=== PATIENT | male | born 1960 | race Caucasian/White ===

== ENCOUNTER 2019-12-22 09:23 | Inpatient (IN) | payer OTHER ==
--- OUTSIDE RECORDS SUMMARY | 2019-12-22 09:26 | XMS ---
:1960 Author Organization [facility] Support Name Relationship Address Phone Slick MADRIGAL SELF / SAME PATIENT [address] [place] [address] [place] [phone] Re-disclosure Warning The records that you are about to access may contain information from federally- assisted alcohol or drug abuse programs. If such information is present, then the following federally mandated warning applies: This information has been disclosed to you from records protected by federal confidentiality rules (42 CFR part 2). The federal rules prohibit you from making any further disclosure of this information unless further disclosure is expressly permitted by the written consent of the person to whom it pertains or as otherwise permitted by 42 CFR part 2. A general authorization for the release of medical or other information is NOT sufficient for this purpose. The Federal rules restrict any use of the information to criminally investigate or prosecute any alcohol or drug abuse patient.The records that you are about to access may contain highly sensitive health information, the redisclosure of which is protected by Article 27-F of the [facility] Public Health law. If you continue you may haveaccess to information: Regarding HIV / AIDS; Provided by facilities licensed or operated by the [facility] Office of Mental Health; or Provided by the [facility] Office for People With Developmental Disabilities. If such information is present, then the following [facility] mandated warning applies: This information has been disclosed to you from confidential records which are protected by state law. State law prohibits you from making any further disclosure of this information without the specific written consent of the person to whom it pertains, or as otherwise permitted by law. Any unauthorized further disclosure in violation of state law may result in a fine or halfway sentence or both. A general authorization for the release of medical or other information is NOT sufficient authorization for further disclosure. Insurance Providers Payer name Policy type Policy ID Covered Covered libertarian's Policy P mariel / Coverage libertarian ID relationship to [facility] ormation type medina [facility] [id number] FIRST
--- NOTE | 2019-12-22 10:49 | BHS.RME ---
Substance Use & Tx History - Substance Use History Alcohol Substance amount: 4 pints of vodka/2 of 12 ozs of beer Frequency of use: Daily Substance route: Oral Date of Last Use: 12/21/19 - Last Treatment Date of last treatment: [facility] 2 months ago Where was last treatment: Detox Physical/Psych/Mental Status - Behavior Eye Contact: Normal - Cooperativeness Cooperativeness: Cooperative - Thinking Thought Processes: Logical - Physical Health Problems Is patient presently having any pain?: No Does patient presently have any injuries (include location): Yes (laceratio of left eyebrow with stitches injury 3 days ago) CIWA Nausea/Vomitin Muscle Tremors: 3 Anxiety: 3 Agitation: 3 Paroxysmal Sweats: 1-Minimal Palms Moist Orientation: 0-Oriented Tacttile Disturbances: 1-Very Mild Itch/Numbness Auditory Disturbances: 0-None Visual Disturbances: 0-None Headache: 1-Very Mild CIWA-Ar Total Score: 14
--- NOTE | 2019-12-22 11:01 | HP ---
CIWA Score Nausea/Vomitin Muscle Tremors: 3 Anxiety: 3 Agitation: 3 Paroxysmal Sweats: 1-Minimal Palms Moist Orientation: 0-Oriented Tacttile Disturbances: 1-Very Mild Itch/Numbness Auditory Disturbances: 0-None Visual Disturbances: 0-None Headache: 1-Very Mild CIWA-Ar Total Score: 14 - Admission Criteria OASAS Guidelines: Admission for Medically Managed Detox: Requires at least one of the followin. CIWA greater than 12 2. Seizures within the past 24 hours 3. Delirium tremens within the past 24 hours 4. Hallucinations within the past 24 hours 5. Acute intervention needed for co occurring medical disorder 6. Acute intervention needed for co occurring psychiatric disorder 7. Severe withdrawal that cannot be handled at a lower level of care (continued vomiting, continued diarrhea, abnormal vital signs) requiring intravenous medication and/or fluids 8. Admitting History and Physical - Admission Chief Complaint: i need help to stop drinking alcohol History of Present Illness: this 59 years old male with alcohol dependence seeking help to stop, seen in [place] last night History Source: Patient Limitations to Obtaining History: No Limitations - Past Medical History Hepatobiliary: Yes: Other (fatty liver) Additional Past Medical History: fx of floor of orbit right at age of 40 years fx floor of right hand at age of 41 years - Smoking History Smoking history: Never smoked - Alcohol/Substance Use Hx Alcohol Use: Yes Date of Last Use: 12/21/19 - Social History Usual Living Arrangement: Yes: Other (living in [facility]) Do you think of yourself as: Straight/Heterosexual ADL: Support Services Occupation: unemployed History of Recent Travel: No Other Social History: living in [facility],ambulation with walker,frequent falls,no legal issue Admission [facility] Chief Complaint: i need help to stop drinking alcohol Allergies/Adverse Reactions: Allergies Allergy/AdvReac Type Severity Reaction Status Date / Time No Known Allergies Allergy Verified 12/22/19 11:07 History of Present Illness: this 59 years old male with alcohol dependence,seeking detox,history of chronic alcoholism stated age of [age] years old, drink 4 pints of vodka and 2 of 12 ozs of beer frequent falls denied seizure syncope ambulation with walker history of fatty liver fell 4 days ago had stitches left eyebrow ,living in snf,unemployed positive eye resident care aid, history of surgery of fx floor of orbit right at age of 40 years fx of right hand surgery at age of 41 on antibiotics for bronchitis supposed to take augmentin history of gastritis no significant period of sobriety chronic edema of legs for 15 days Exam Limitations: No Limitations - Ebola screening Have you traveled outside of the country in the last 21 days: No Have you had contact with anyone from an Ebola affected area: No Have you been sick,other than usual withdrawal symptoms: No Do you have a fever: No - Review of Systems Constitutional: Loss of Appetite, Night Sweats, Changes in sleep, Weakness EENT: reports: Nose Congestion, Other (left eye brow with stiches and scab) Respiratory: reports: No Symptoms reported (history of bronchitis), Other Cardiac: reports: No Symptoms Reported GI: reports: Diarrhea, Nausea, Poor Appetite : reports: No Symptoms Reported Musculoskeletal: reports: Back Pain, Joint Pain Integumentary: reports: Dryness (swelling bot h legs), Other Neuro: reports: Tremors Endocrine: reports: No Symptoms Reported Hematology: reports: No Symptoms Reported Psychiatric: reports: No Sypmtoms Reported, Judgement Intact, Mood/Affect Appropiate, Orientated x3 Patient History - Patient Medical History Hx Anemia: No Hx Asthma: No Hx Chronic Obstructive Pulmonary Disease (COPD): No Hx Cancer: No Hx Cardiac Disorders: No Hx Congestive Heart Failure: No Hx Hypertension: No Hx Hypercholesterolemia: No Hx Pacemaker: No HX Cerebrovascular Accident: No Hx Seizures: No Hx Dementia: No Hx Diabetes: No Hx Gastrointestinal Disorders: Yes (gastritis) Hx Liver Disease: Yes (fatty kiver) Hx Genitourinary Disorders: No Hx Sexually Transmitted Disorders: No Hx Renal Disease (ESRD): No Hx Thyroid Disease: No Hx Human Immunodeficiency Virus (HIV): No (06/2019 negative) Hx Hepatitis C: No Hx Depression: No Hx Suicide Attempt: No Hx Bipolar Disorder: No Hx Schizophrenia: No Other Medical History: no suiciidal,no homicidal - Patient Surgical History Past Surgical History: Yes Other Surgical History: fx floor of right orbit at age of 40,fx right hand at age of 41,frequent fa - PPD History Previous Implant?: Yes Documented Results: Negative w/o proof Implanted On Prior [facility] Admission?: No PPD to be Administered?: Yes - Smoking Cessation Smoking history: Never smoked - Substance & Tx. History Hx Alcohol Use: Yes Hx Substance Use: No Substance Use Type: Alcohol Hx Substance Use Treatment: Yes ([facility] in 10/2019) - Substances abused Alcohol Substance route: Oral Frequency: Daily Amount used: 4 pnits of vodka/2 of 12 ozs of beer Age of first use: 10 Date of last use: 12/21/19 Admission Physical Exam [facility] - Vital Signs Vital Signs: bp 103/61 p100 r 18 t 98 bryce o.oo pulse ox 99% - Physical General Appearance: Yes: Moderate Distress, Tremorous, Irritable, Sweating, Anxious HEENTM: Yes: Other (laceration of left eyebrow with stitches and scab formation) Respiratory: Yes: Lungs Clear, No Respiratory Distress Neck: Yes: Within Normal Limits, Supple Breast: Yes: Within Normal Limits Cardiology: Yes: Within Normal Limits, Regular Rhythm, Regular Rate, S1, S2 Abdominal: Yes: Normal Bowel Sounds, Non Tender, Soft Genitourinary: Yes: Within Normal Limits Back: Yes: Muscle Spasm Musculoskeletal: Yes: Back pain, Muscle Pain Extremities: Yes: Tremors, Pedal Edema Neurological: Yes: drum straightener II-XII NML intact, Fully Oriented, Alert, Motor Strength 5/5, Normal Mood/Affect Integumentary: Yes: Dry Lymphatic: Yes: Within Normal Limits - Diagnostic (1) Alcohol dependence, uncomplicated Current Visit: Yes Status: Acute (2) Edema of both legs Current Visit: Yes Status: Acute (3) Frequent falls Current Visit: Yes Status: Acute (4) Walker as ambulation aid Current Visit: Yes Status: Acute (5) Bronchitis Current Visit: Yes Status: Acute (6) Syncope Current Visit: Yes Status: Acute (7) Laceration of eyebrow Current Visit: Yes Status: Acute Qualifiers: Laterality: left Cleared for Admission [facility] - Detox or Rehab [facility] Level of Care: Medically Managed Detox Regimen/Protocol: Librium Inpatient Rehab Admission - Rehab Decision to Admit Inpatient rehab admission?: No
[2019-12-22] MEDS ORDERED: ONDANSETRON *ODT* 4 MG TABLET SL PRN (11:33)
[2019-12-22] MEDS ORDERED: MENTHOL/PHENOL 1 EACH UD MM PRN (11:33)
[2019-12-22] MEDS ORDERED: METHOCARBAMOL 500 MG TABLET PO PRN (11:33)
[2019-12-22] MEDS ORDERED: ACETAMINOPHEN 325 MG TABLET (FP) PO PRN ×2 (11:33)
[2019-12-22] MEDS ORDERED: MAGNESIUM HYDROX 2400MG/30ML ORAL SUSPENSION 30 ML CUP PO PRN (11:33)
[2019-12-22] MEDS ORDERED: chlordiazePOXIDE HCL 25 MG CAPSULE PO PRN (11:33)
[2019-12-22] MEDS ORDERED: MAGNESIUM CITRATE 300 ML BOTTLE PO PRN (11:33)
[2019-12-22] MEDS ORDERED: IBUPROFEN 400 MG TABLET (FP) PO PRN (11:33)
[2019-12-22] MEDS ORDERED: BISMUTH SUBSALICYLATE 524 MG/30 ML UD PO PRN (11:33)
--- OUTSIDE RECORDS SUMMARY | 2019-12-22 11:52 | XMS ---
:1960 Author Organization [facility] Support Name Relationship Address Phone ANETTE MADRIGAL SELF / SAME PATIENT [address] [place] [address] [phone] [place] [address] Re-disclosure Warning The records that you are [...] is protected by Article 27-F of the [facility] Public Health law. If you continue you may haveaccess to information: Regarding HIV / AIDS; Provided by facilities licensed or operated by the [facility] Office of Mental Health; or Provided by the [facility] Office for People With Developmental Disabilities. If such information is present, then the following [facility] mandated warning applies: This information has [...] law may result in a fine or mcc sentence or both. A general authorization for the release of medical or other information is NOT sufficient authorization for further disclosure. Insurance Providers Payer name Policy type Policy ID Covered Covered alliance party's Policy P mariel / Coverage alliance party ID relationship to [facility] ormation type medina [facility] [id number] SP [id number] FIRST
[2019-12-22 11:57] VITALS: BMI 21.4
[2019-12-22] MEDS ORDERED: ALBUTEROL SO4 HFA INHALER IH PRN (12:33)
[2019-12-22] MEDS: BACITRACIN 15 GM TUBE TOPICAL OINTMENT TP SCH ×2 (13:37→22:34)
[2019-12-22] MEDS: hydrOXYzine PAMOATE 25 MG CAPSULE (FP) PO SCH ×3 (13:44→22:30)
[2019-12-22] MEDS: chlordiazePOXIDE HCL 25 MG CAPSULE PO SCH ×2 (17:50→22:30)
--- NOTE | 2019-12-22 21:48 | EKG ---
Test Reason : Blood Pressure : / mmHG Vent. Rate : 096 BPM Atrial Rate : 096 BPM P-R Int : 134 ms QRS Dur : 088 ms QT Int : 356 ms P-R-T Axes : 013 047 053 degrees QTc Int : 449 ms NORMAL SINUS RHYTHM NORMAL ECG NO PREVIOUS ECGS AVAILABLE Confirmed by Edwina Maria ([id number]) on 12/22/2019 9:48:43 PM Referred By: Confirmed By:Edwina Maria
[2019-12-22] MEDS: AMOX TR/POT CLAV 500MG/125MG TABLETS (FP) PO SCH (22:30)
[2019-12-22] MEDS: MELATONIN 5 MG TABLETS PO SCH (22:30)
[2019-12-22] MEDS: THIAMINE HCL 100 MG TABLET (FP) PO SCH (22:30)
[2019-12-23] MEDS: chlordiazePOXIDE HCL 25 MG CAPSULE PO SCH ×4 (05:25→22:33)
[2019-12-23] MEDS: hydrOXYzine PAMOATE 25 MG CAPSULE (FP) PO SCH ×5 (05:55→22:33)
[2019-12-23] MEDS: AMOX TR/POT CLAV 500MG/125MG TABLETS (FP) PO SCH ×2 (07:49→18:21)
--- NOTE | 2019-12-23 09:41 | PN ---
[facility] CIWA - CIWA Score Nausea/Vomitin-No Nausea/No Vomiting Muscle Tremors: 3 Anxiety: 2 Agitation: 0-Normal Activity Paroxysmal Sweats: 1-Minimal Palms Moist ("little bit when I woke up") Orientation: 0-Oriented Tacttile Disturbances: 1-Very Mild Itch/Numbness (lower legs) Auditory Disturbances: 0-None Visual Disturbances: 2-Mild Sensitivity Headache: 2-Mild CIWA-Ar Total Score: 11 S Progress Note (SOAP) Subjective: 59 years old male was admitted on 12/22/19 for alcohol withdrawal sx management treating with librium detox regiment ambulating with walker slow steady tolerating augmentin well both lower legs +1 edematous encourage elevation on pillows continue ensure supplement Objective: 12/23/19 09:45 Vital Signs - 24 hr 12/22/19 12/22/19 12/22/19 11:55 13:25 16:45 Temperature 98.0 F 98.6 F 98.2 F Pulse Rate 100 H 106 H 107 H Respiratory 18 18 19 Rate Blood Pressure 103/61 157/83 152/82 O2 Sat by Pulse 99 Oximetry (%) 12/22/19 12/23/19 21:26 06:52 Temperature 98.2 F 99.6 F Pulse Rate 93 H 86 Respiratory 18 18 Rate Blood Pressure 132/72 130/80 O2 Sat by Pulse 98 100 Oximetry (%) 12/23/19 09:45 lab pending Assessment: 12/23/19 09:45 alcohol withdrawal Plan: librium regiment
[2019-12-23] MEDS: PANTOPRAZOLE 40 MG TABLET PO SCH (10:16)
[2019-12-23] MEDS: PRENATAL VITAMINS W/ FOLIC ACID TABLET (FP) PO SCH (10:16)
[2019-12-23] MEDS: BACITRACIN 15 GM TUBE TOPICAL OINTMENT TP SCH (10:30)
[2019-12-23 10:31] LABS: HEMATOCRIT 32.1 % (35.4-49); HEMOGLOBIN 10.8 GM/dL (11.7-16.9); MCHC 33.7 g/dl (32.0-35.9); MEAN CELL VOLUME 91.9 fl (80-96); MEAN PLT VOLUME 7.3 fl (7.5-11.1); PLATELET COUNT 98 K/MM3 (134-434); RDW 14.9 % (11.9-15.9); WHITE BLOOD COUNT 3.9 K/mm3 (4.0-10.0)
[2019-12-23] MEDS: BACITRACIN 0.9 GM PACKET TP SCH ×2 (10:31→22:33)
[2019-12-23 11:04] LABS: ALBUMIN 3.2 g/dl (3.4-5.0); BILIRUBIN,TOTAL 0.9 mg/dL (0.2-1); CALCIUM 8.1 mg/dL (8.5-10.1); CREATININE 0.8 mg/dL (0.55-1.3); TOT PROT 5.8 g/dl (6.4-8.2)
[2019-12-23 11:11] LABS: POTASSIUM 2.9 mmol/L (3.5-5.1)
[2019-12-23] MEDS: POTASSIUM CHLORIDE ORAL LIQUID 20 MEQ/15 ML PO SCH ×2 (13:04→15:16)
[2019-12-23 14:57] LABS: URINE APPEARANCE CLOUDY; URINE BILIRUBIN NEGATIVE (NEGATIVE); URINE COLOR YELLOW; URINE GLUCOSE (UA) NEGATIVE (NEGATIVE); URINE KETONE NEGATIVE (NEGATIVE); URINE LEUK ESTERASE NEGATIVE (NEGATIVE); URINE NITRITE NEGATIVE (NEGATIVE); URINE PROTEIN TRACE (NEGATIVE); URINE UROBILINOGEN 0.2 mg/dL (0.2-1.0)
[2019-12-23] MEDS: MELATONIN 5 MG TABLETS PO SCH (22:33)
[2019-12-23] MEDS: THIAMINE HCL 100 MG TABLET (FP) PO SCH (22:33)
[2019-12-24] MEDS: hydrOXYzine PAMOATE 25 MG CAPSULE (FP) PO SCH ×5 (05:16→23:01)
[2019-12-24] MEDS: chlordiazePOXIDE HCL 25 MG CAPSULE PO SCH ×4 (05:16→23:01)
[2019-12-24] MEDS: PRENATAL VITAMINS W/ FOLIC ACID TABLET (FP) PO SCH (10:16)
[2019-12-24] MEDS: BACITRACIN 0.9 GM PACKET TP SCH ×2 (10:16→23:02)
[2019-12-24] MEDS: PANTOPRAZOLE 40 MG TABLET PO SCH (10:17)
[2019-12-24] MEDS: MAG HYDROX/AL HYDROX/SIMETH 30 ML UNIT-DOSE CUP PO PRN (10:18)
--- NOTE | 2019-12-24 11:16 | PN ---
[facility] CIWA - CIWA Score Nausea/Vomitin-Mild Nausea/No Vomiting Muscle Tremors: 1-None Visible, but [place] Anxiety: 1-Mildly Anxious Agitation: 0-Normal Activity Paroxysmal Sweats: No Perspiration Orientation: 0-Oriented Tacttile Disturbances: 1-Very Mild Itch/Numbness Auditory Disturbances: 0-None Visual Disturbances: 1-Very Mild Sensitivity Headache: 1-Very Mild CIWA-Ar Total Score: 6 BHS Progress Note (SOAP) Subjective: 59 years old male was admitted on 12/22/19 for alcohol withdrawal sx management treating with librum detox regiment ambulating with walker slow steady ate breakfast tolerated food and ensure well low K+ tolerated K+ supplement well Objective: 12/24/19 11:27 Vital Signs - 24 hr 12/23/19 12/23/19 12/23/19 13:41 16:51 20:30 Temperature 97.5 F L 97.3 F L 97.5 F L Pulse Rate 85 97 H 84 Respiratory 16 18 18 Rate Blood Pressure 150/79 139/90 132/79 O2 Sat by Pulse 98 100 Oximetry (%) 12/24/19 12/24/19 06:27 09:16 Temperature 98.6 F 97.1 F L Pulse Rate 82 92 H Respiratory 18 18 Rate Blood Pressure 135/84 131/75 O2 Sat by Pulse 99 Oximetry (%) Laboratory Tests 12/22/19 12/23/19 12/23/19 12:20 07:25 07:25 WBC 3.9 L RBC 3.50 L Hgb 10.8 L Hct 32.1 L MCV 91.9 MCH 31.0 MCHC 33.7 RDW 14.9 Plt Count 98 L MPV 7.3 L Sodium Potassium Chloride Carbon Dioxide Anion Gap BUN Creatinine Est GFR (CKD-EPI)AfAm Est GFR (CKD-EPI)NonAf Random Glucose Calcium Total Bilirubin AST ALT Alkaline Phosphatase Total Protein Albumin Urine Color Urine Appearance Urine pH Ur Specific [employer] Urine Protein Urine Glucose (UA) Urine Ketones Urine Blood Urine Nitrite Urine Bilirubin Urine Urobilinogen Ur Leukocyte Esterase Syphilis Serology Non-reactive COVID-19 (SHERITA) Not detected 12/23/19 12/23/19 07:25 11:00 WBC RBC Hgb Hct MCV MCH MCHC RDW Plt Count MPV Sodium 143 Potassium 2.9 L* Chloride 104 Carbon Dioxide 34 H Anion Gap 5 L BUN 13.0 Creatinine 0.8 Est GFR (CKD-EPI)AfAm 113.33 Est GFR (CKD-EPI)NonAf 97.78 Random Glucose 95 Calcium 8.1 L Total Bilirubin 0.9 AST 67 H ALT 39 Alkaline Phosphatase 77 Total Protein 5.8 L Albumin 3.2 L Urine Color Yellow Urine Appearance Cloudy Urine pH 7.0 Ur Specific [employer] 1.025 Urine Protein Trace Urine Glucose (UA) Negative Urine Ketones Negative Urine Blood Negative Urine Nitrite Negative Urine Bilirubin Negative Urine Urobilinogen 0.2 Ur Leukocyte Esterase Negative Syphilis Serology COVID-19 (SHERITA) 12/24/19 11:27 K+ repeat pending Assessment: 12/24/19 11:27 alcohol withdrawal hypokalemia Plan: librium regiment repeat K+ pending
[2019-12-24] MEDS: POTASSIUM CHLORIDE ORAL LIQUID 20 MEQ/15 ML PO SCH ×2 (15:43→18:54)
[2019-12-24] MEDS: AMOX TR/POT CLAV 500MG/125MG TABLETS (FP) PO SCH (18:55)
[2019-12-24] MEDS: THIAMINE HCL 100 MG TABLET (FP) PO SCH (23:01)
[2019-12-24] MEDS: MELATONIN 5 MG TABLETS PO SCH (23:02)
[2019-12-25] MEDS ORDERED: chlordiazePOXIDE HCL 10 MG CAPSULE PO PRN
[2019-12-25] MEDS: hydrOXYzine PAMOATE 25 MG CAPSULE (FP) PO SCH (05:27)
[2019-12-25] MEDS: chlordiazePOXIDE HCL 10 MG CAPSULE PO SCH ×4 (05:27→22:32)
[2019-12-25] MEDS: AMOX TR/POT CLAV 500MG/125MG TABLETS (FP) PO SCH ×3 (05:27→17:47)
--- NOTE | 2019-12-25 09:43 | PN ---
S CIWA - CIWA Score Nausea/Vomitin-No Nausea/No Vomiting Muscle Tremors: 1-None Visible, but [place] Anxiety: 1-Mildly Anxious Agitation: 0-Normal Activity Paroxysmal Sweats: No Perspiration Orientation: 0-Oriented Tacttile Disturbances: 0-None Auditory Disturbances: 0-None Visual Disturbances: 1-Very Mild Sensitivity Headache: 0-None Present CIWA-Ar Total Score: 3 BHS Progress Note (SOAP) Subjective: 59 years old male was admitted on 12/22/19 for alcohol withdrawal sx management treating with librium detox regiment ambulating with walker slow steady fell on 12/20/19 treated at [facility] 5 sutures at left lateral eye brow sutures intact denies pain no redness no swelling no tenderness multiple superficial skin abrasion on both lower legs encourage mr alcaraz clean with soap pad dry apply bacitracin ointment as directed Objective: 12/25/19 09:42 Vital Signs - 24 hr 12/24/19 12/24/19 12/24/19 15:07 16:43 20:37 Temperature 97.4 F L 98.2 F 98.6 F Pulse Rate 95 H 96 H 89 Respiratory 18 18 16 Rate Blood Pressure 142/86 138/90 135/84 O2 Sat by Pulse 96 99 Oximetry (%) 12/25/19 12/25/19 06:26 08:53 Temperature 97.6 F 97.7 F Pulse Rate 78 92 H Respiratory 18 18 Rate Blood Pressure 136/83 130/85 O2 Sat by Pulse 98 Oximetry (%) Laboratory Tests 12/22/19 12/23/19 12/23/19 12:20 07:25 07:25 WBC 3.9 L RBC 3.50 L Hgb 10.8 L Hct 32.1 L MCV 91.9 MCH 31.0 MCHC 33.7 RDW 14.9 Plt Count 98 L MPV 7.3 L Sodium Potassium Chloride Carbon Dioxide Anion Gap BUN Creatinine Est GFR (CKD-EPI)AfAm Est GFR (CKD-EPI)NonAf Random Glucose Calcium Total Bilirubin AST ALT Alkaline Phosphatase Total Protein Albumin Urine Color Urine Appearance Urine pH Ur Specific [place] Urine Protein Urine Glucose (UA) Urine Ketones Urine Blood Urine Nitrite Urine Bilirubin Urine Urobilinogen Ur Leukocyte Esterase Syphilis Serology Non-reactive COVID-19 (SHERITA) Not detected 12/23/19 12/23/19 12/24/19 07:25 11:00 07:30 WBC RBC Hgb Hct MCV MCH MCHC RDW Plt Count MPV Sodium 143 Potassium 2.9 L* 3.2 L Chloride 104 Carbon Dioxide 34 H Anion Gap 5 L BUN 13.0 Creatinine 0.8 Est GFR (CKD-EPI)AfAm 113.33 Est GFR (CKD-EPI)NonAf 97.78 Random Glucose 95 Calcium 8.1 L Total Bilirubin 0.9 AST 67 H ALT 39 Alkaline Phosphatase 77 Total Protein 5.8 L Albumin 3.2 L Urine Color Yellow Urine Appearance Cloudy Urine pH 7.0 Ur Specific [place] 1.025 Urine Protein Trace Urine Glucose (UA) Negative Urine Ketones Negative Urine Blood Negative Urine Nitrite Negative Urine Bilirubin Negative Urine Urobilinogen 0.2 Ur Leukocyte Esterase Negative Syphilis Serology COVID-19 (SHERITA) 12/25/19 09:43 discontinue vistaril 12/25/19 09:43 received K+ supplement 40meq x 2 dosages repeat K+ pending Assessment: 12/25/19 09:44 alcohol withdrawal Plan: librium regiment
[2019-12-25] MEDS: PANTOPRAZOLE 40 MG TABLET PO SCH (10:26)
[2019-12-25] MEDS: PRENATAL VITAMINS W/ FOLIC ACID TABLET (FP) PO SCH (10:26)
[2019-12-25] MEDS: BACITRACIN 0.9 GM PACKET TP SCH ×2 (10:37→22:32)
[2019-12-25] MEDS: MELATONIN 5 MG TABLETS PO SCH (22:32)
[2019-12-25] MEDS: THIAMINE HCL 100 MG TABLET (FP) PO SCH (22:32)
[2019-12-25] MEDS: MAG HYDROX/AL HYDROX/SIMETH 30 ML UNIT-DOSE CUP PO PRN (23:00)
[2019-12-26] MEDS: chlordiazePOXIDE HCL 10 MG CAPSULE PO SCH ×2 (05:23→17:55)
[2019-12-26] MEDS: AMOX TR/POT CLAV 500MG/125MG TABLETS (FP) PO SCH ×2 (08:07→17:55)
--- NOTE | 2019-12-26 08:41 | PN ---
S CIWA - CIWA Score Nausea/Vomitin-Mild Nausea/No Vomiting Muscle Tremors: 2 Anxiety: 2 Agitation: 0-Normal Activity Paroxysmal Sweats: No Perspiration Orientation: 0-Oriented Tacttile Disturbances: 0-None Auditory Disturbances: 0-None Visual Disturbances: 0-None Headache: 0-None Present CIWA-Ar Total Score: 5 BHS Progress Note (SOAP) Subjective: alert,irritable,anxious,interrupted sleep,aching pain Objective: 12/26/19 12:07 Vital Signs Temperature 96.9 F L 12/26/19 08:48 Pulse Rate 83 12/26/19 08:48 Respiratory Rate 16 12/26/19 08:48 Blood Pressure 106/66 12/26/19 08:48 O2 Sat by Pulse Oximetry (%) 96 12/26/19 06:11 12/26/19 12:07 Laboratory Results - last 24 hr 12/25/19 07:30 Potassium 3.6 Assessment: 12/26/19 12:08 withdrawal symptom Plan: continue detox librium regimen,declined rehab,follow up with medical provider at [facility] and out patient program at [facility] alcohol and substance abused as arrangement by counselor
[2019-12-26] MEDS: PANTOPRAZOLE 40 MG TABLET PO SCH (10:13)
[2019-12-26] MEDS: BACITRACIN 0.9 GM PACKET TP SCH ×2 (10:13→22:07)
[2019-12-26] MEDS: PRENATAL VITAMINS W/ FOLIC ACID TABLET (FP) PO SCH (10:13)
[2019-12-26] MEDS: THIAMINE HCL 100 MG TABLET (FP) PO SCH (22:07)
[2019-12-26] MEDS: MELATONIN 5 MG TABLETS PO SCH (22:07)
[2019-12-26] MEDS: MAG HYDROX/AL HYDROX/SIMETH 30 ML UNIT-DOSE CUP PO PRN (22:08)
[2019-12-27] MEDS ORDERED: chlordiazePOXIDE HCL 10 MG CAPSULE PO ONE (05:00)
[2019-12-27] MEDS: AMOX TR/POT CLAV 500MG/125MG TABLETS (FP) PO SCH (07:04)
[2019-12-27 09:23] VITALS: BP 113/78; PULSE 91; TEMP 97.7
--- NOTE | 2019-12-27 10:35 | DS ---
[facility] Detox Discharge Summary Admission Date: 12/22/19 Discharge Date: 12/27/19 - History Present History: Alcohol Dependence Additional Comments: alert,oriented x 3 ambulation on unit with walker lung clear on auscultation bilaterally no pain in the abdomen ,no tenderness stable for discharge,detox completed,no withdrawal symptom declined rehab will follow up with [facility] alcohol and substance abuse out patient total time of discharge 35 minutes Pertinent Past History: syncope alcohol related frequent falls ambulation with walker old laceration of left eyebrow with stitches bronchitis - Physical Exam Results Vital Signs: Vital Signs Temperature 97.7 F 12/27/19 08:50 Pulse Rate 91 H 12/27/19 08:50 Respiratory Rate 18 12/27/19 08:50 Blood Pressure 113/78 12/27/19 08:50 O2 Sat by Pulse Oximetry (%) 98 12/26/19 20:16 Pertinent Admission Physical Exam Findings: withdrawal signs and symptom Vital Signs Temperature 97.7 F 12/27/19 08:50 Pulse Rate 91 H 12/27/19 08:50 Respiratory Rate 18 12/27/19 08:50 Blood Pressure 113/78 12/27/19 08:50 O2 Sat by Pulse Oximetry (%) 98 12/26/19 20:16 Laboratory Last Values WBC 3.9 K/mm3 (4.0-10.0) L 12/23/19 07:25 RBC 3.50 M/mm3 (4.00-5.60) L 12/23/19 07:25 Hgb 10.8 GM/dL (11.7-16.9) L 12/23/19 07:25 Hct 32.1 % (35.4-49) L 12/23/19 07:25 MCV 91.9 fl (80-96) 12/23/19 07:25 MCH 31.0 pg (25.7-33.7) 12/23/19 07:25 MCHC 33.7 g/dl (32.0-35.9) 12/23/19 07:25 RDW 14.9 % (11.9-15.9) 12/23/19 07:25 Plt Count 98 K/MM3 (134-434) L 12/23/19 07:25 MPV 7.3 fl (7.5-11.1) L 12/23/19 07:25 Sodium 143 mmol/L (136-145) 12/23/19 07:25 Potassium 3.6 mmol/L (3.5-5.1) 12/25/19 07:30 Chloride 104 mmol/L (98-107) 12/23/19 07:25 Carbon Dioxide 34 mmol/L (21-32) H 12/23/19 07:25 Anion Gap 5 MMOL/L (8-16) L 12/23/19 07:25 BUN 13.0 mg/dL (7-18) 12/23/19 07:25 Creatinine 0.8 mg/dL (0.55-1.3) 12/23/19 07:25 Est GFR (CKD-EPI)AfAm 113.33 12/23/19 07:25 Est GFR (CKD-EPI)NonAf 97.78 12/23/19 07:25 Random Glucose 95 mg/dL (74-106) 12/23/19 07:25 Calcium 8.1 mg/dL (8.5-10.1) L 12/23/19 07:25 Total Bilirubin 0.9 mg/dL (0.2-1) 12/23/19 07:25 AST 67 U/L (15-37) H 12/23/19 07:25 ALT 39 U/L (13-61) 12/23/19 07:25 Alkaline Phosphatase 77 U/L (45-117) 12/23/19 07:25 Total Protein 5.8 g/dl (6.4-8.2) L 12/23/19 07:25 Albumin 3.2 g/dl (3.4-5.0) L 12/23/19 07:25 Urine Color Yellow 12/23/19 11:00 Urine Appearance Cloudy 12/23/19 11:00 Urine pH 7.0 (5.0-8.0) 12/23/19 11:00 Ur Specific [place] 1.025 (1.010-1.035) 12/23/19 11:00 Urine Protein Trace (NEGATIVE) 12/23/19 11:00 Urine Glucose (UA) Negative (NEGATIVE) 12/23/19 11:00 Urine Ketones Negative (NEGATIVE) 12/23/19 11:00 Urine Blood Negative (NEGATIVE) 12/23/19 11:00 Urine Nitrite Negative (NEGATIVE) 12/23/19 11:00 Urine Bilirubin Negative (NEGATIVE) 12/23/19 11:00 Urine Urobilinogen 0.2 mg/dL (0.2-1.0) 12/23/19 11:00 Ur Leukocyte Esterase Negative (NEGATIVE) 12/23/19 11:00 Syphilis Serology Non-reactive (NONREACTIVE) 12/23/19 07:25 COVID-19 (SHERITA) Not detected (Not Detected) 12/22/19 12:20 - Treatment Hospital Course: Detox Protocol Followed, Detoxed Safely, Responded well, Discharged Condition Good Patient has Accepted a Rehab Referral to: declined - Medication Discharge Medications: Ambulatory Orders Albuterol Sulfate [Proair Hfa] 8.5 gm IH PRN 12/22/19 Folic Acid - 1 mg PO DAILY 12/22/19 Pantoprazole Sodium [Protonix -] 40 mg PO DAILY 12/22/19 - Diagnosis (1) Alcohol dependence, uncomplicated Status: Acute (2) Edema of both legs Status: Acute (3) Frequent falls Status: Acute (4) Walker as ambulation aid Status: Acute (5) Bronchitis Status: Acute (6) Syncope Status: Acute (7) Laceration of eyebrow Status: Acute Qualifiers: Laterality: left - AMA Did Patient Leave Against Medical Advice: No
--- NOTE | 2019-12-27 10:35 | PN ---
S CIWA - CIWA Score Nausea/Vomitin-No Nausea/No Vomiting Muscle Tremors: None Anxiety: 1-Mildly Anxious Agitation: 0-Normal Activity Paroxysmal Sweats: No Perspiration Orientation: 0-Oriented Tacttile Disturbances: 0-None Auditory Disturbances: 0-None Visual Disturbances: 0-None Headache: 0-None Present CIWA-Ar Total Score: 1 [facility] Progress Note (SOAP) Subjective: alert,no complaint Objective: 12/27/19 13:49 Vital Signs Temperature 97.7 F 12/27/19 08:50 Pulse Rate 91 H 12/27/19 08:50 Respiratory Rate 18 12/27/19 08:50 Blood Pressure 113/78 12/27/19 08:50 O2 Sat by Pulse Oximetry (%) 98 12/26/19 20:16 Assessment: 12/27/19 13:49 detox completed,no withdrawal symptom Plan: stable for discharge,[facility] at [facility] alcohol and substance abused outpatient as arrangement
== END 2019-12-27 10:00 | disposition home or self-care (01) | DRG 775 ==
LOC: YASAS 09:23 → Y3N 11:48
PROVIDERS: ADMIT Allergy & Immunology; ATTEND Allergy & Immunology
PROC: HZ2ZZZZ Detoxification Services for Substance Abuse Treatment (ICD-10-PCS; principal; 2019-12-22)
DX: F10.230 Alcohol dependence with withdrawal, uncomplicated (principal); E87.6 Hypokalemia; R60.0 Localized edema; J20.9 Acute bronchitis, unspecified; Z87.19 Personal history of other diseases of the digestive system; S01.112D Laceration without foreign body of left eyelid and periocular area, subsequent encounter; W19.XXXD Unspecified fall, subsequent encounter; R29.6 Repeated falls; Z99.89 Dependence on other enabling machines and devices; Z56.0 Unemployment, unspecified; Z59.0 Homelessness
CPT/HCPCS: 36415; 80053; 81003; 84132; 85027; 86780; 93005; 93010; C9803; U0003

== ENCOUNTER 2020-02-03 08:29 | Inpatient (IN) | payer OTHER ==
[2020-02-03 09:35] VITALS: BMI 22.8
[2020-02-03] MEDS ORDERED: ONDANSETRON *ODT* 4 MG TABLET SL PRN (09:38)
[2020-02-03] MEDS ORDERED: METHOCARBAMOL 500 MG TABLET PO PRN (09:38)
[2020-02-03] MEDS ORDERED: MAGNESIUM HYDROX 2400MG/30ML ORAL SUSPENSION 30 ML CUP PO PRN (09:38)
[2020-02-03] MEDS ORDERED: BISMUTH SUBSALICYLATE 524 MG/30 ML UD PO PRN (09:38)
[2020-02-03] MEDS ORDERED: MAG HYDROX/AL HYDROX/SIMETH 30 ML UNIT-DOSE CUP PO PRN (09:38)
[2020-02-03] MEDS ORDERED: MENTHOL/PHENOL 1 EACH UD MM PRN (09:38)
[2020-02-03] MEDS ORDERED: IBUPROFEN 400 MG TABLET (FP) PO PRN (09:38)
[2020-02-03] MEDS ORDERED: chlordiazePOXIDE HCL 25 MG CAPSULE PO PRN (09:38)
[2020-02-03] MEDS ORDERED: MAGNESIUM CITRATE 300 ML BOTTLE PO PRN (09:38)
[2020-02-03] MEDS ORDERED: ACETAMINOPHEN 325 MG TABLET (FP) PO PRN ×2 (09:38)
[2020-02-03] MEDS ORDERED: ALBUTEROL SO4 HFA INHALER IH SCH ×2 (10:00→11:04)
[2020-02-03] MEDS: chlordiazePOXIDE HCL 25 MG CAPSULE PO SCH ×3 (10:49→22:19)
[2020-02-03] MEDS: PRENATAL VITAMINS W/ FOLIC ACID TABLET (FP) PO SCH (10:49)
[2020-02-03] MEDS: hydrOXYzine PAMOATE 25 MG CAPSULE (FP) PO SCH ×4 (10:50→22:19)
[2020-02-03] MEDS: PANTOPRAZOLE 40 MG TABLET PO SCH (11:06)
[2020-02-03 14:37] LABS: HEMATOCRIT 35.8 % (35.4-49); HEMOGLOBIN 11.8 GM/dL (11.7-16.9); MCH 31.1 pg (25.7-33.7); MCHC 32.9 g/dl (32.0-35.9); MEAN CELL VOLUME 94.5 fl (80-96); MEAN PLT VOLUME 7.1 fl (7.5-11.1); PLATELET COUNT 188 K/MM3 (134-434); RBC 3.78 M/mm3 (4.00-5.60); RDW 15.4 % (11.9-15.9); WHITE BLOOD COUNT 3.2 K/mm3 (4.0-10.0)
[2020-02-03 14:38] LABS: BLOOD UREA NITROGEN 7.5 mg/dL (7-18); CALCIUM 8.2 mg/dL (8.5-10.1)
[2020-02-03 14:41] LABS: CREATININE 0.9 mg/dL (0.55-1.3)
[2020-02-03 14:42] LABS: BILIRUBIN,TOTAL 0.6 mg/dL (0.2-1)
[2020-02-03 14:43] LABS: TOT PROT 7.2 g/dl (6.4-8.2)
[2020-02-03] MEDS: AMOX TR/POT CLAV 875MG/125MG TABLETS (FP) PO SCH (17:30)
[2020-02-03] MEDS: THIAMINE HCL 100 MG TABLET (FP) PO SCH (22:19)
[2020-02-03] MEDS: MELATONIN 5 MG TABLETS PO SCH (22:20)
[2020-02-04] MEDS: hydrOXYzine PAMOATE 25 MG CAPSULE (FP) PO SCH ×5 (05:56→22:16)
[2020-02-04] MEDS: chlordiazePOXIDE HCL 25 MG CAPSULE PO SCH ×4 (05:56→22:16)
[2020-02-04] MEDS: AMOX TR/POT CLAV 875MG/125MG TABLETS (FP) PO SCH ×2 (07:26→17:18)
[2020-02-04] MEDS: PRENATAL VITAMINS W/ FOLIC ACID TABLET (FP) PO SCH (10:09)
[2020-02-04] MEDS: PANTOPRAZOLE 40 MG TABLET PO SCH (10:09)
[2020-02-04] MEDS: MELATONIN 5 MG TABLETS PO SCH (22:16)
[2020-02-04] MEDS: THIAMINE HCL 100 MG TABLET (FP) PO SCH (22:16)
[2020-02-05] MEDS: chlordiazePOXIDE HCL 25 MG CAPSULE PO SCH ×2 (05:55→10:13)
[2020-02-05] MEDS: hydrOXYzine PAMOATE 25 MG CAPSULE (FP) PO SCH ×3 (05:55→13:46)
[2020-02-05] MEDS: AMOX TR/POT CLAV 875MG/125MG TABLETS (FP) PO SCH (07:57)
[2020-02-05] MEDS: PRENATAL VITAMINS W/ FOLIC ACID TABLET (FP) PO SCH (10:13)
[2020-02-05] MEDS: PANTOPRAZOLE 40 MG TABLET PO SCH (10:13)
[2020-02-05 13:59] VITALS: BP 101/70; PULSE 82; TEMP 97.5
[2020-02-06] MEDS ORDERED: chlordiazePOXIDE HCL 10 MG CAPSULE PO PRN
[2020-02-06] MEDS ORDERED: chlordiazePOXIDE HCL 10 MG CAPSULE PO SCH (05:00)
[2020-02-07] MEDS ORDERED: chlordiazePOXIDE HCL 10 MG CAPSULE PO SCH (05:00)
[2020-02-08] MEDS ORDERED: chlordiazePOXIDE HCL 10 MG CAPSULE PO ONE (05:00)
== END 2020-02-05 15:08 | disposition left against medical advice (07) | DRG 770 ==
LOC: YASAS 08:29 → Y3N 09:44
PROVIDERS: ADMIT Allergy & Immunology; ATTEND Allergy & Immunology
PROC: HZ2ZZZZ Detoxification Services for Substance Abuse Treatment (ICD-10-PCS; principal; 2020-02-03)
DX: F10.230 Alcohol dependence with withdrawal, uncomplicated (principal); F19.24 Other psychoactive substance dependence with psychoactive substance-induced mood disorder; L03.116 Cellulitis of left lower limb; K21.9 Gastro-esophageal reflux disease without esophagitis; D72.819 Decreased white blood cell count, unspecified; R76.11 Nonspecific reaction to tuberculin skin test without active tuberculosis; Z99.89 Dependence on other enabling machines and devices; Z87.81 Personal history of (healed) traumatic fracture; Z59.0 Homelessness; M79.605 Pain in left leg; W01.198D Fall on same level from slipping, tripping and stumbling with subsequent striking against other object, subsequent encounter
CPT/HCPCS: 36415; 71046-TC-FY; 80053; 85027; 86480; 86780; C9803; U0003

== ENCOUNTER 2022-03-17 13:49 | Inpatient (IN) | payer OTHER ==
[2022-03-17 16:43] VITALS: BMI 19.1
[2022-03-17] MEDS ORDERED: LOPERAMIDE HCL 2 MG CAPSULE PO PRN (17:38)
[2022-03-17] MEDS ORDERED: MAGNESIUM HYDROX 2400MG/30ML ORAL SUSPENSION 30 ML CUP PO PRN (17:38)
[2022-03-17] MEDS ORDERED: DICYCLOMINE HCL 10 MG CAPSULE PO PRN (17:38)
[2022-03-17] MEDS ORDERED: POLYETHYLENE GLYCOL (HEALTHYLAX) 3350 17 GM PACKET PO PRN (17:38)
[2022-03-17] MEDS ORDERED: IBUPROFEN 400 MG TABLET (FP) PO PRN (17:38)
[2022-03-17] MEDS ORDERED: IBUPROFEN 600 MG TABLET (FP) PO PRN (17:38)
[2022-03-17] MEDS ORDERED: BISMUTH SUBSALICYLATE 524 MG/30 ML PO PRN (17:38)
[2022-03-17] MEDS ORDERED: NALOXONE HCL (KLOXXADO) 8 MG SPRAY NS PRN (17:38)
[2022-03-17] MEDS ORDERED: MAG HYDROX/AL HYDROX/SIMETH 30 ML UNIT-DOSE CUP PO PRN (17:38)
[2022-03-17] MEDS ORDERED: ACETAMINOPHEN 325 MG TABLET (FP) PO PRN ×2 (17:38)
[2022-03-17] MEDS ORDERED: LORazepam 1 MG TABLET PO PRN (17:38)
[2022-03-17] MEDS ORDERED: METHOCARBAMOL 500 MG TABLET PO PRN (17:38)
[2022-03-17] MEDS ORDERED: BENZOCAINE/MENTHOL (CHLORASEPTIC ) LOZENGE MM PRN (17:38)
[2022-03-17] MEDS ORDERED: hydrOXYzine PAMOATE 25 MG CAPSULE (FP) PO PRN (17:38)
[2022-03-17] MEDS ORDERED: ALBUTEROL SO4 HFA INHALER IH PRN (17:45)
[2022-03-17] MEDS ORDERED: LORazepam 2 MG TABLET PO ONE (18:30)
[2022-03-17] MEDS: PRENATAL VITAMINS W/ FOLIC ACID TABLET (FP) PO SCH (19:26)
[2022-03-17] MEDS: LORazepam 2 MG TABLET PO SCH (23:31)
[2022-03-17] MEDS: THIAMINE HCL 100 MG TABLET (FP) PO SCH (23:31)
[2022-03-17] MEDS: MELATONIN 5 MG TABLETS PO SCH (23:32)
[2022-03-18] MEDS: LORazepam 2 MG TABLET PO SCH ×4 (05:50→22:03)
[2022-03-18] MEDS: PANTOPRAZOLE 40 MG TABLET PO SCH (11:21)
[2022-03-18] MEDS: ONDANSETRON *ODT* 4 MG TABLET SL PRN (11:21)
[2022-03-18] MEDS: PRENATAL VITAMINS W/ FOLIC ACID TABLET (FP) PO SCH (11:21)
[2022-03-18 14:32] LABS: HEMATOCRIT 37.6 % (35.4-49); HEMOGLOBIN 12.3 GM/dL (11.7-16.9); MCH 28.6 pg (25.7-33.7); MCHC 32.7 g/dl (32.0-35.9); MEAN CELL VOLUME 87.6 fl (80-96); MEAN PLT VOLUME 7.5 fl (7.5-11.1); PLATELET COUNT 151 10^3/uL (134-434); RBC 4.29 M/mm3 (4.00-5.60); RDW 14.9 % (11.9-15.9); WHITE BLOOD COUNT 6.1 K/mm3 (4.0-10.0)
[2022-03-18] MEDS ORDERED: POTASSIUM CHLORIDE ORAL LIQUID 20 MEQ/15 ML PO ONE ×2 (15:24→21:00)
[2022-03-18 15:29] LABS: CALCIUM 8.4 mg/dL (8.5-10.1)
[2022-03-18 15:30] LABS: ALBUMIN 3.4 g/dl (3.4-5.0); BLOOD UREA NITROGEN 14.4 mg/dL (7-18)
[2022-03-18 15:34] LABS: TOT PROT 6.5 g/dl (6.4-8.2)
[2022-03-18] MEDS: THIAMINE HCL 100 MG TABLET (FP) PO SCH (22:03)
[2022-03-18] MEDS: MELATONIN 5 MG TABLETS PO SCH (22:03)
[2022-03-19] MEDS: LORazepam 1 MG TABLET PO SCH ×4 (06:01→22:26)
[2022-03-19] MEDS: PRENATAL VITAMINS W/ FOLIC ACID TABLET (FP) PO SCH (10:33)
[2022-03-19] MEDS: PANTOPRAZOLE 40 MG TABLET PO SCH (10:34)
[2022-03-19] MEDS: LACTULOSE 20 GM/30 ML UDC (FOR ORAL USE ONLY) PO SCH ×3 (14:35→22:26)
[2022-03-19] MEDS: ONDANSETRON *ODT* 4 MG TABLET SL PRN (18:15)
[2022-03-19] MEDS: THIAMINE HCL 100 MG TABLET (FP) PO SCH (22:26)
[2022-03-19] MEDS: MELATONIN 5 MG TABLETS PO SCH (22:26)
[2022-03-20] MEDS ORDERED: LORazepam 0.5 MG TABLET PO PRN
[2022-03-20] MEDS: LORazepam 0.5 MG TABLET PO SCH ×4 (05:25→22:30)
[2022-03-20] MEDS: LACTULOSE 20 GM/30 ML UDC (FOR ORAL USE ONLY) PO SCH ×4 (10:54→22:31)
[2022-03-20] MEDS: PRENATAL VITAMINS W/ FOLIC ACID TABLET (FP) PO SCH (10:54)
[2022-03-20] MEDS: PANTOPRAZOLE 40 MG TABLET PO SCH (10:55)
[2022-03-20 21:15] VITALS: RESP 18
[2022-03-20] MEDS: MELATONIN 5 MG TABLETS PO SCH (22:30)
[2022-03-20] MEDS: THIAMINE HCL 100 MG TABLET (FP) PO SCH (22:30)
[2022-03-21] MEDS ORDERED: LORazepam 0.5 MG TABLET PO ONE (05:00)
[2022-03-21 10:43] VITALS: BP 134/88; PULSE 92; TEMP 98
[2022-03-21] MEDS: LACTULOSE 20 GM/30 ML UDC (FOR ORAL USE ONLY) PO SCH (10:57)
[2022-03-21] MEDS: PRENATAL VITAMINS W/ FOLIC ACID TABLET (FP) PO SCH (10:57)
[2022-03-21] MEDS: PANTOPRAZOLE 40 MG TABLET PO SCH (10:58)
== END 2022-03-21 10:05 | disposition home or self-care (01) | DRG 775 ==
LOC: YASAS 13:49 → Y6N 17:55
PROVIDERS: ADMIT Allergy & Immunology; ATTEND Surgery
PROC: HZ2ZZZZ Detoxification Services for Substance Abuse Treatment (ICD-10-PCS; principal; 2022-03-17)
DX: F10.230 Alcohol dependence with withdrawal, uncomplicated (principal); F41.1 Generalized anxiety disorder; E78.5 Hyperlipidemia, unspecified; J45.20 Mild intermittent asthma, uncomplicated; K21.9 Gastro-esophageal reflux disease without esophagitis; K70.0 Alcoholic fatty liver; R79.89 Other specified abnormal findings of blood chemistry; R29.6 Repeated falls; Z87.891 Personal history of nicotine dependence
CPT/HCPCS: 36415; 80053; 82140; 84132; 85027; 86780; 93005; 93010; C9803-CS; Q0162; U0003; U0005